=== PATIENT | female | born 1950 | race Caucasian/White ===

== ENCOUNTER 2018-03-15 09:40 | Emergency (ER) | payer MEDICARE, OTHER ==
[~2018-03-15] VITALS: Ht 165.1 cm; Wt 59.0 kg
[2018-03-15] MEDS ORDERED: ACETAMINOPHEN ES 500 MG TABLET PO ONE (10:00)
[2018-03-15] MEDS ORDERED: ACETAMINOPHEN ES 500 MG TABLET ONE (10:02)
--- NOTE | 2018-03-15 10:54 | NUR ---
PT WAS EVALUATED BY DR GLYNN. PT WAS D/C'd TO HOME. D/C INSTRUCTIONS GIVEN TO THE PT. GAIT IS STABLE. PT DENIES PAIN.
[2018-03-15 10:57] VITALS: BP 132/77
== END 2018-03-15 10:57 | disposition home or self-care (01) ==
LOC: ER 09:42
DX: S70.01XA Contusion of right hip, initial encounter (principal); W18.30XA Fall on same level, unspecified, initial encounter; Y93.89 Activity, other specified; Y92.89 Other specified places as the place of occurrence of the external cause; Y99.8 Other external cause status
CPT/HCPCS: 72110; 73502; A4663; A9150

== ENCOUNTER 2018-12-03 20:39 | Emergency (ER) | payer MEDICARE, OTHER ==
[~2018-12-03] VITALS: Ht 157.5 cm; Wt 63.5 kg
[2018-12-03] MEDS ORDERED: diphenhydrAMINE 25 MG CAP PO ONE ×2 (21:00→21:03)
--- NOTE | 2018-12-03 21:00 | NUR ---
Pt aox4, STABLE BUT ANTALGIC GAIT ASSISTED BY RELATIVE, COMING FROM HOME -CARDIORESPIRATORY DISTRESS, SPEECH IS CLEAR AND ABLE TO COMPLETE SENTENCES, ABLE TO FOLLOW COMMANDS. NAD, SMILING AND VERY PLEASANT COMPLAINING OF MULTIPLE INSECT BITES: ONE ON FACE (1X2CM), TWO BITES ON RIGHT LOWER LEG ANTERIOR (IRREGULAR EDGES APPROX 2X2CM) +ERYTHEMA , +BIPEDAL EDEMA, PAIN AND DISCOMFORT TO THE SITE ATLEAST 2/10 DENIES RECENT TRAVELS, NO PPMED HX, DENIES NVD, DENIES ETOH, DENIES RECREATIONAL DRUG USE , NONSMOKER, PT SIDERAILS UPX2, KEPT WARM SAFE AND COMFORTABLE. MD AT BEDSIDE FOR HX AND PHYSICAL
--- NOTE | 2018-12-03 21:14 | NUR ---
Patient discharged to home in stable conditon. Written and verbal after care instructions given. Patient verbalizes understanding of instructions. STABLE GAIT ASSISTANCE BY RELATIVE. AMBULATORY
[2018-12-03 21:17] VITALS: BP 133/71
== END 2018-12-03 21:17 | disposition home or self-care (01) ==
LOC: ER 20:41
DX: S00.86XA Insect bite (nonvenomous) of other part of head, initial encounter (principal); S10.96XA Insect bite of unspecified part of neck, initial encounter; S80.861A Insect bite (nonvenomous), right lower leg, initial encounter; L03.115 Cellulitis of right lower limb; W57.XXXA Bitten or stung by nonvenomous insect and other nonvenomous arthropods, initial encounter; Y93.89 Activity, other specified; Y92.89 Other specified places as the place of occurrence of the external cause; Y99.8 Other external cause status
CPT/HCPCS: 99283; Q0163; A4663

== ENCOUNTER 2022-05-26 16:36 | Emergency (ER) | payer MEDICARE, OTHER ==
[~2022-05-26] VITALS: Ht 160 cm; Wt 77.1 kg
[2022-05-26] MEDS ORDERED: ACETAMINOPHEN 325 MG TABLET PO ONE (17:45)
[2022-05-26] MEDS ORDERED: ACETAMINOPHEN ES 500 MG TABLET ONE (17:45)
--- NOTE | 2022-05-26 17:47 | NUR ---
placed aluminum finger splint on pt's fractured finger and immobilized it with elastic bandage.
--- NOTE | 2022-05-26 18:02 | NUR ---
Gave pt and daughter d/c instructions, both verbalized understanding.
[2022-05-26 18:09] VITALS: BP 151/74
== END 2022-05-26 18:14 | disposition home or self-care (01) ==
LOC: ER 16:42
DX: S62.624A Displaced fracture of middle phalanx of right ring finger, initial encounter for closed fracture (principal); W01.0XXA Fall on same level from slipping, tripping and stumbling without subsequent striking against object, initial encounter; Y92.89 Other specified places as the place of occurrence of the external cause; I10 Essential (primary) hypertension
CPT/HCPCS: 73140; A4663; A9150

== ENCOUNTER 2025-04-16 19:06 | Emergency (ER) | payer MEDICARE, OTHER ==
[~2025-04-16] VITALS: Ht 165.1 cm; Wt 57.6 kg
[2025-04-16] MEDS: IV NORMAL SALINE 1000 ML BAG IV ONE (20:02)
[2025-04-16 20:05] LABS: PLATELET COUNT (AUTO) 206 K/uL (179-408); RED BLOOD CELL COUNT(AUTO) 4.80 MIL/uL (3.63-4.92); RED CELL DISTRIBUTION WIDTH 13.1 % (12.3-17.7); WHITE BLOOD COUNT (AUTO) 4.1 K/uL (3.8-11.8)
[2025-04-16 20:20] LABS: ASPARTATE AMINOTRANSFERASE 27 U/L (15-37); CREATININE 0.7 mg/dL (0.6-1.3); SODIUM SERUM 139 mmol/L (136-145); TOTAL PROTEIN, SERUM 7.2 g/dL (6.4-8.2); UREA NITROGEN, BLOOD 16 mg/dL (7-18)
[2025-04-16] MEDS ORDERED: ACETAMINOPHEN 500 MG TABLET ONE (20:37)
[2025-04-16] MEDS: ACETAMINOPHEN 500 MG TABLET PO ONE (20:37)
[2025-04-16 21:13] VITALS: BP 139/56
[2025-04-16 21:42] LABS: *BILIRUBIN,URIN NEGATIVE (NEGATIVE); *CLARITY,URINE CLEAR (CLEAR); *COLOR,URINE YELLOW (YELLOW); *KETONES,URINE TRACE (NEGATIVE); *PROTEIN,URINE NEGATIVE (NEGATIVE); *UROBILINOGEN,URINE 0.2 E.U./dl (NORMAL); LEUKOCYTE ESTERASE ,URINE NEGATIVE (NEGATIVE); NITRITE, URINE NEGATIVE (NEGATIVE); UGLUCOSE NEGATIVE (NEGATIVE)
[2025-04-16 21:43] LABS: *BLOOD, URINE TRACE (NEGATIVE)
[2025-04-16 21:52] VITALS: BP 139/56; TEMP 99.6; O2SAT 97
[2025-04-16 22:51] LABS: SQUAMOUS EPITHELIAL CELL,UR FEW /HPF (NONE SEEN)
== END 2025-04-16 21:54 | disposition home or self-care (01) ==
LOC: ER 19:06
DX: R50.9 Fever, unspecified (principal); R51.9 Headache, unspecified; B34.9 Viral infection, unspecified; E78.5 Hyperlipidemia, unspecified; Z88.7 Allergy status to serum and vaccine
CPT/HCPCS: 36415; 71045; 83605; 85025; 87040; A4606; A4663; A9150